=== PATIENT | female | born 2000 | race Caucasian/White ===

== ENCOUNTER 2022-08-28 11:58 | Inpatient (IN) | payer MEDICAID ==
[~2022-08-28] VITALS: Ht 167.6 cm; Wt 112.5 kg
[2022-08-28] MEDS ORDERED: LR 1,000 ML IV SCH (12:15)
[2022-08-28] MEDS ORDERED: LR 1,000 ML IV ONE (12:15)
[2022-08-28] MEDS ORDERED: NALBUPHINE HCL 10 MG/ML AMP IVP PRN (12:15)
[2022-08-28] MEDS ORDERED: NALOXONE HCL 0.4 MG/ML AMP (NARCAN) ONE ×2 (12:25→13:02)
[2022-08-28] MEDS ORDERED: LIDOCAINE PF 1% 30ML(POUR BTL) INJ ONE ×2 (12:25→13:02)
[2022-08-28] MEDS ORDERED: LIGHT MINERAL OIL 10 ML VIAL MC ONE ×2 (12:25→13:01)
[2022-08-28 12:55] LABS: BILIRUBIN,URINE NEGATIVE (NEGATIVE); BLOOD, URINE 3+ (NEGATIVE); CLARITY/URINE CLEAR (CLEAR); COLOR,URINE YELLOW (YELLOW); GLUCOSE,URINE NEGATIVE (NEGATIVE); KETONES,URINE NEGATIVE (NEGATIVE); LEUKOCYTE ESTERASE ,URINE TRACE (NEGATIVE); NITRITE, URINE NEGATIVE (NEGATIVE); PROTEIN URINE 1+ (NEGATIVE); UROBILINOGEN,URINE 0.2 (0.2-1.0)
[2022-08-28 13:01] LABS: BASOPHILS % (AUTO) 0.1 % (0.0-2.0); EOSINOPHILS # (AUTO) 0.1 K/uL (0.0-0.4); EOSINOPHILS % (AUTO) 0.6 % (0.0-4.0); HEMOGLOBIN 12.3 g/dL (12.0-16.0); LYMPHOCYTES # (AUTO) 2.1 K/uL (1.0-5.5); LYMPHOCYTES % (AUTO) 23.9 % (20.5-51.5); MEAN CORPUSCULAR HEMOGLOBIN 30 pg (27-31); MEAN CORPUSCULAR HGB CONC 35 % (32-36); MEAN CORPUSCULAR VOLUME 86 fL (79.0-98.0); MONOCYTES # (AUTO) 0.4 K/uL (0.0-1.0); NEUTROPHILS # (AUTO) 6.3 K/uL (1.8-7.7); NEUTROPHILS % (AUTO) 70.4 % (40.0-70.0); PLATELET COUNT (AUTO) 161 K/uL (130-430); RED BLOOD CELL COUNT(AUTO) 4.07 MIL/uL (4.2-6.2); RED CELL DISTRIBUTION WIDTH 13.2 % (9.0-15.0)
[2022-08-28] MEDS ORDERED: fentaNYL CITRATE/PF 100 MCG/2 ML AMP ONE (13:02)
[2022-08-28] MEDS ORDERED: ROPIVACAINE HCL/PF 0.2% 200 ML ONE (13:02)
[2022-08-28 13:07] LABS: ALBUMIN 2.5 g/dL (3.4-4.8); CALCIUM 8.6 mg/dL (8.4-11.0); CREATININE 0.51 mg/dL (0.55-1.30); TOTAL BILIRUBIN 0.2 mg/dL (0.0-1.0)
[2022-08-28 13:11] LABS: BACTERIA,URINE FEW /HPF (None Seen); MUCUS,URINE 1+ /LPF (None Seen); RBC,URINE 20-50 /HPF (0-3)
[2022-08-28] MEDS ORDERED: TERBUTALINE SULFATE 5 MG TABLET ONE (13:49)
[2022-08-28] MEDS ORDERED: TERBUTALINE SULFATE 1 MG/ML VIAL ONE (13:50)
[2022-08-28] MEDS ORDERED: LR 500 ML IV ONE (14:00)
[2022-08-28] MEDS ORDERED: ePHEDrine sulfate 50 MG/ML VIAL IVP PRN (14:00)
[2022-08-28] MEDS ORDERED: FENT2mCg/mL-ROPIVA0.2%/NS EPID 200 ML EP SCH (14:00)
[2022-08-28] MEDS ORDERED: OXYTOCIN/0.9 % SODIUM CHLORIDE 1,000 ML IV ONE ×2 (17:56→19:00)
[2022-08-28] MEDS ORDERED: METHYLERGONOVINE MALEATE 0.2 MG/ML AMP ONE (18:39)
[2022-08-28] MEDS ORDERED: WITCH HAZEL LEAF 1 MED.PAD MED.PAD TP PRN (19:00)
[2022-08-28] MEDS ORDERED: HYDROCORTISONE 0.5% CREAM 28.4 GM CREAM.GM. TP PRN (19:00)
[2022-08-28] MEDS ORDERED: OXYCODONE/ACETAMINOPHEN 5-325 TABLET PO PRN ×2 (19:00)
[2022-08-28] MEDS ORDERED: OXYTOCIN/0.9 % SODIUM CHLORIDE 1,000 ML IV SCH (19:00)
[2022-08-28] MEDS ORDERED: LANOLIN 7 GM OINT. TP PRN (19:00)
[2022-08-28] MEDS ORDERED: DERMOPLAST SPRAY TP PRN (19:00)
[2022-08-28] MEDS ORDERED: ANUSOL 1 EA SUPP.RECT (PREPARATION H) RC PRN (19:00)
[2022-08-28] MEDS ORDERED: TEMAZEPAM 15 MG CAPSULE PO PRN (21:00)
[2022-08-28] MEDS ORDERED: SENNOSIDES/DOCUSATE SODIUM 1 TAB TABLET(SENOKOT-S) PO SCH (21:00)
[2022-08-28 21:21] VITALS: BP_SYST 145
[2022-08-28] MEDS: IBUPROFEN 800 MG TABLET PO PRN (22:58)
[2022-08-29] MEDS: IBUPROFEN 800 MG TABLET PO PRN ×2 (05:55→15:45)
[2022-08-29 07:20] LABS: HEMATOCRIT 29.2 % (36-48); HEMOGLOBIN 10.1 g/dL (12.0-16.0)
[2022-08-29] MEDS ORDERED: DOCUSATE SODIUM 100 MG CAPSULE PO SCH (09:00)
[2022-08-30] MEDS: IBUPROFEN 800 MG TABLET PO PRN ×2 (00:46→06:32)
== END 2022-08-30 18:25 | disposition home or self-care (01) | DRG 560 ==
LOC: SPU 11:58 → OBSVTOIN 11:58
PROVIDERS: ADMIT Obstetrics & Gynecology; ATTEND Obstetrics & Gynecology
PROC: 10D07Z6 Extraction of Products of Conception, Vacuum, Via Natural or Artificial Opening (ICD-10-PCS; principal; 2022-08-28)
PROC: 0W8NXZZ Division of Female Perineum, External Approach (ICD-10-PCS; 2022-08-28)
PROC: 3E0R3BZ Introduction of Anesthetic Agent into Spinal Canal, Percutaneous Approach (ICD-10-PCS; 2022-08-28)
PROC: 00HU33Z Insertion of Infusion Device into Spinal Canal, Percutaneous Approach (ICD-10-PCS; 2022-08-28)
DX: O13.4 Gestational [pregnancy-induced] hypertension without significant proteinuria, complicating childbirth (principal); Z37.0 Single live birth; O24.429 Gestational diabetes mellitus in childbirth, unspecified control; Z88.0 Allergy status to penicillin; Z20.822 Contact with and (suspected) exposure to COVID-19; Z3A.39 39 weeks gestation of pregnancy
CPT/HCPCS: 36415; 80053; 81000; 82962; 85018; 85025; 86592; 86886; 86900; 86901; 87536; 94760; J2001; J2210; J2300; J2310; J2590; J3010; J3105